=== PATIENT | male | born 1955 | race Caucasian/White ===

== ENCOUNTER → 2018-10-14 | Outpatient (CLI) | payer BC ==
--- NOTE | 2018-10-14 14:55 | XR ---
EXAMINATION TYPE: XR chest 2V DATE OF EXAM: 10/14/2018 COMPARISON: None INDICATION: Prostate cancer TECHNIQUE: Frontal and lateral views of the chest are obtained. FINDINGS: The heart size is normal. The pulmonary vasculature is normal. The lungs are clear. Osseous structures appear unremarkable. IMPRESSION: 1. No acute pulmonary process.
--- NOTE | 2018-10-14 17:18 | NM ---
EXAMINATION TYPE: NM bone scan whole body DATE OF EXAM: 10/14/2018 COMPARISON: NONE HISTORY: Prostate cancer Delayed whole-body scanning was performed following the injection of 24.2 mCi Tc 99m MDP. Images acq uired 3 hours post injection. FINDINGS: Increased uptake is around the bilateral knees more focal along the medial tibial plateau on the left diffusely on the right. Findings are likely degenerative in nature. Some mild diffuse uptake is at t he bilateral wrists and at the bilateral shoulders most likely degenerative in nature. Some uptake is within the mid left foot most likely degenerative in nature. Some mild uptake through the joint spac es of the hands are likely degenerative in nature. Some mild uptake is within the posterior left 7 region and within the posterior left T8 to region is could be degenerative in nature. IMPRESSION: Mild scattered areas of uptake more likely related to degenerative changes.
--- NOTE | 2018-10-14 17:45 | CT ---
EXAMINATION TYPE: CT abdomen pelvis w con DATE OF EXAM: 10/14/2018 COMPARISON: None INDICATION: Prostate CA DLP: 2154.5 mGycm, Automated exposure control for dose reduction was used. CONTRAST: 100 mL of Isovue M300. Study performed with Oral Contrast TECHNIQUE: Axial images were obtained from above the diaphragm to the pubic rami in the axial plane a t 5 mm thick sections. Reconstructed images are reviewed on the computer in the coronal plane. FINDINGS: Limited CT sections are obtained the lung bases. The lung bases are clear. CT ABDOMEN: Liver: There is moderate fatty infiltration liver. No discrete masses or cysts are evident. Spleen: Normal Pancreas: Normal Adrenal glands: The adrenal glands are normal. Gallbladder: Normal Kidneys: No masses are evident. No hydronephrosis is present. There is a 1.7 cm hypodensity within the anterior right mid kidney. This has a Hounsfield unit measurement of 54. Additional workup with u ltrasound is recommended. Underlying mass is not excluded. Multiple additional hypodensities are with in the bilateral kidneys suspicious for cortical renal cysts. Calcification without obstruction may b e at the inferior pole left kidney measuring 3 mm in size. Delayed images were obtained through the kidneys are demonstrating suspected cortical renal cysts. Aorta: Vascular calcification is within the aorta. Inferior vena cava: Normal. CT PELVIS: Loops of bowel within the abdomen and pelvis are normal. Scattered diverticuli within the sigmoid colon. No acute diverticulitis is evident. There are loops of bowel lacking oral contrast limiting t heir evaluation. Oral contrast extends to the proximal colon. Appendix: Surgically absent. Urinary bladder: Normal. Genitourinary structures: Prostate is slightly prominent. Osseous structures: No suspicious lytic or sclerotic lesions. Small bone islands likely within the me dial right iliac wing. Facet degenerative changes are present within the lower lumbar spine. IMPRESSIONS: 1. Multiple bilateral renal cysts. One within the medial right kidney has an intermediate density, a dditional evaluation with ultrasound is recommended. 2. Moderate fatty infiltration liver.
== END | disposition home or self-care (01) ==
LOC: RADNMMAIN 10:13
PROVIDERS: ATTEND Urology
DX: N28.1 Cyst of kidney, acquired (principal); K76.0 Fatty (change of) liver, not elsewhere classified; R94.8 Abnormal results of function studies of other organs and systems; C61 Malignant neoplasm of prostate
CPT/HCPCS: 71046; 74177; 78306; A9503; Q9967

== ENCOUNTER → 2018-10-25 | Outpatient (CLI) | payer BC | END | disposition home or self-care (01) | LOC: LABWHC1 10:18 | PROVIDERS: ATTEND Radiology Radiation Oncology | DX: C61 Malignant neoplasm of prostate (principal) | CPT/HCPCS: 36415; 84153 ==

== ENCOUNTER → 2018-12-12 | Outpatient (CLI) | payer BC | END | disposition home or self-care (01) | LOC: LABWHC1 13:06 | PROVIDERS: ATTEND Radiology Radiation Oncology | DX: C61 Malignant neoplasm of prostate (principal); Z87.891 Personal history of nicotine dependence | CPT/HCPCS: 36415; 84153 ==

== ENCOUNTER → 2019-03-17 | Outpatient (CLI) | payer BC | END | disposition home or self-care (01) | LOC: LABWHC1 12:18 | PROVIDERS: ATTEND Radiology Radiation Oncology | DX: C61 Malignant neoplasm of prostate (principal); Z87.891 Personal history of nicotine dependence | CPT/HCPCS: 36415; 84153 ==

== ENCOUNTER → 2019-08-15 | Outpatient (CLI) | payer BC | END | disposition home or self-care (01) | LOC: LABWHC1 14:41 | PROVIDERS: ATTEND Radiology Radiation Oncology | DX: C61 Malignant neoplasm of prostate (principal); Z87.891 Personal history of nicotine dependence | CPT/HCPCS: 36415; 84153 ==

== ENCOUNTER → 2020-08-02 | Outpatient (CLI) | payer MEDICARE, BC ==
[2020-08-03 00:08] LABS: Prostate Specific Antigen 0.1 ng/mL (0.0-4.5)
== END | disposition home or self-care (01) ==
LOC: LABWHC1 15:07
PROVIDERS: ATTEND Radiology Radiation Oncology
DX: C61 Malignant neoplasm of prostate (principal); Z92.3 Personal history of irradiation; Z87.891 Personal history of nicotine dependence
CPT/HCPCS: 36415; 84153; 84403

== ENCOUNTER → 2020-08-27 | Outpatient (CLI) | payer MEDICARE, BC ==
--- NOTE | 2020-08-27 11:11 | CT ---
EXAMINATION TYPE: CT urogram wo/w con DATE OF EXAM: 08/27/2020 COMPARISON: CT abdomen and pelvis October 14, 2018 HISTORY: Gross hematuria CT DLP: 3315 mGycm, Automated Exposure Control for Dose Reduction was Utilized. CONTRAST: CT scan of the abdomen and pelvis is performed without oral and without and with IV Contrast, patient injected with 100 ml mL of Isovue 370. Urogram protocol with 3-D reconstructed images created on the independent workstation and reviewed FINDINGS: KUB: Noncontrast images show roughly 1-2 faint peripheral calculi measuring 2 mm or smaller from refe rence lower pole coronal image 134 in the right kidney and 2-3 2 to 3 mm without obstructing calculi scattered throughout left kidney, for reference upper pole calculus coronal image 126. Dynamic postco ntrast images show symmetrical uptake and excretion with a few simple-appearing thin-walled cysts sca ttered bilaterally. They are increased in size from prior study. For reference there is 3.0 cm partia lly exophytic thin-walled cyst anteriorly mid to lower pole of the right kidney axial image 38 series 14. There is no concerning solid or cystic renal mass noted. There is satisfactory contrast opacific ation of bilateral ureters. There is mild focal wall thickening inferior posterior bladder near UVJ this measures up to just over 5.0 mm axial image 78 series 14 for reference and appears distinct from adjacent prostate and seminal vesicles. LUNG BASES: No significant abnormality is appreciated. LIVER/GB: Liver is diffusely low dense on noncontrast contrast CT consistent with fatty infiltration. PANCREAS: No significant abnormality is seen. SPLEEN: No significant abnormality is seen. ADRENALS: No significant abnormality is seen. BOWEL: There is roughly 3.5 cm diverticulum near junction of second and third portion duodenum. Some sigmoid colonic diverticulosis. No suspicious bowel dilatation. PROSTATE/SEMINAL VESICLES: No gross abnormality seen. LYMPH NODES: No greater than 1cm abdominal or pelvic lymph nodes are appreciated. OSSEOUS STRUCTURES: Multilevel spurring in the spine. Moderate disc space narrowing and vacuum disc p henomenon L4-L5 and L5-S1 levels. Facet arthropathy lower lumbar spine. OTHER: Atherosclerotic and ectatic abdominal aorta measuring up to 2.7 cm transversely axial image 38 . No greater than 3.0 cm AAA. IMPRESSION: Small nonobstructing renal calculi bilaterally. Slightly suspicious focal concentric wall thickening inferior posterior bladder, consider direct visualization to rule out neoplasia.
== END | disposition home or self-care (01) ==
LOC: RADCTMAIN 08:18
PROVIDERS: ATTEND Urology
DX: N20.0 Calculus of kidney (principal); R31.0 Gross hematuria
CPT/HCPCS: 82565; 84520; 74178; 36415; 74400; Q9967

== ENCOUNTER → 2021-02-07 | Outpatient (CLI) | payer MEDICARE | END | disposition home or self-care (01) | LOC: LABWHC1 15:45 | PROVIDERS: ATTEND Radiology Radiation Oncology | DX: C61 Malignant neoplasm of prostate (principal); Z92.3 Personal history of irradiation; Z87.891 Personal history of nicotine dependence | CPT/HCPCS: 36415; 84153 ==

== ENCOUNTER → 2021-08-11 | Outpatient (CLI) | payer MEDICARE | END | disposition home or self-care (01) | LOC: LABWHC1 14:13 | PROVIDERS: ATTEND Radiology Radiation Oncology | DX: C61 Malignant neoplasm of prostate (principal); Z85.46 Personal history of malignant neoplasm of prostate; Z92.3 Personal history of irradiation; Z87.891 Personal history of nicotine dependence | CPT/HCPCS: 36415; 84153 ==

== ENCOUNTER → 2022-02-25 | Outpatient (CLI) | payer MEDICARE ==
--- NOTE | 2022-02-25 08:26 | CT ---
EXAMINATION TYPE: CT chest wo con DATE OF EXAM: 02/25/2022 INDICATION: thoracic aortic aneurysm CT DLP: 786 mGy.cm Automated Exposure Control for Dose Reduction was Utilized. TECHNIQUE AND CONTRAST: CT scan of the chest without IV contrast administration. COMPARISON: No previous CT scan is available for comparison. FINDINGS: Ascending aortic aneurysm measuring up to 4.3 cm. Normal diameter of the remainder of the visualized thoracic and upper abdominal aorta. Scattered arterial atherosclerotic calcifications. Coronary arter ial calcifications are also noted. The pulmonary trunk measures 3 cm. No gross cardiomegaly. No pathologically enlarged lymph nodes in the chest. Minimal infiltration/articulation is seen at the lateral aspect of the right lung base. Grossly unremarkable lungs otherwise. Patent central airways. No pleural or pericardial effusion. Mild bilateral gynecomastia changes. Partially calcified lesion at the posterior aspect of the right thyroid lobe, for correlation with th yroid ultrasound results. Suspected bilateral renal cysts, suboptimally assessed by this nonenhanced CT scan. Duodenal diverticulum. Degenerative changes of thoracic spine. IMPRESSION: 1. Ascending aortic aneurysm measuring up to 4.3 cm. 2. Borderline pulmonary trunk diameter, please correlate for pulmonary hypertension. 3. Right thyroid lobe partially calcified lesion, please correlate with thyroid ultrasound results. O ther incidental findings as described above.
== END | disposition home or self-care (01) ==
LOC: RADCTMAIN 07:07
PROVIDERS: ATTEND Family Medicine
DX: I71.2 Thoracic aortic aneurysm, without rupture (principal); E07.89 Other specified disorders of thyroid
CPT/HCPCS: 71250

== ENCOUNTER → 2022-11-19 | Outpatient (CLI) | payer MEDICARE | END | disposition home or self-care (01) | LOC: LABWHC1 10:30 | PROVIDERS: ATTEND Radiology Radiation Oncology | DX: Z08 Encounter for follow-up examination after completed treatment for malignant neoplasm (principal); C61 Malignant neoplasm of prostate | CPT/HCPCS: 36415; 84153 ==

== ENCOUNTER → 2024-05-22 | Outpatient (CLI) | payer MEDICARE | END | disposition home or self-care (01) | LOC: LABWHC1 11:12 | PROVIDERS: ATTEND Radiology Radiation Oncology | DX: Z08 Encounter for follow-up examination after completed treatment for malignant neoplasm (principal); C61 Malignant neoplasm of prostate; Z90.89 Acquired absence of other organs; Z92.3 Personal history of irradiation; Z87.891 Personal history of nicotine dependence | CPT/HCPCS: 36415; 84153 ==